=== PATIENT | male | born 1965 | race American Indian/Alaskan Native ===

== ENCOUNTER 2016-05-07 22:52 | Observation (INO) | payer SELFPAY ==
[2016-05-07 22:53] VITALS: BMI 19.6
[2016-05-07 23:05] VITALS: TEMP 97.7
--- NOTE | 2016-05-08 00:22 | C.PDOC ---
History Of Present Illness 51 year old male pt was brought in by EMS for ETOH intoxication today. Pt admits consuming ETOH. Pt denies falls, injuries, and has no physical complaints. Time Seen by Provider: 05/07/16 23:05 Chief Complaint (Nursing): Substance Abuse History Per: Patient, EMS History/Exam Limitations: no limitations Onset/Duration Of Symptoms: Unknown Current Symptoms Are (Timing): Still Present Modifying Factor(s): Alcohol Severity: Moderate Involuntary Hold By: Emergency Physician Past Medical History Reviewed: Historical Data, Nursing Documentation, Vital Signs Vital Signs: Last Vital Signs Temp 97.7 F 05/07/16 23:03 Pulse 86 05/07/16 23:03 Resp 18 05/07/16 23:03 BP 135/95 H 05/07/16 23:03 Pulse Ox 96 05/08/16 00:30 - Medical History PMH: Back Problems (slipped disks), Hypercholesterolemia (GI bleed, alcohol dependence) - [facility] Procedures ALCOHOL DETOXIFICATION (08/30/12) Family History: States: No Known Family Hx - Social History Hx Tobacco Use: No Hx Alcohol Use: Yes Hx Substance Use: No (DENIED) - Immunization History Hx Tetanus Toxoid Vaccination: No Hx Influenza Vaccination: No Hx Pneumococcal Vaccination: No Review Of Systems Except As Marked, All Systems Reviewed And Found Negative. Gastrointestinal: Negative for: Nausea, Vomiting, Abdominal Pain, Diarrhea Musculoskeletal: Negative for: Other (Fall or injury) Physical Exam - Physical Exam Appears: Well, Non-toxic, Other (smells of ETOH) Skin: Warm, Dry Head: Atraumatic, Normacephalic Eye(s): bilateral: Normal Inspection Oral Mucosa: Moist Cardiovascular: Rhythm Regular Respiratory: Normal Breath Sounds, No Rales, No Rhonchi, No Wheezing Gastrointestinal/Abdominal: Normal Exam, Bowel Sounds, Soft, No Tenderness, No Distention, No Guarding, No Rebound Extremity: Normal ROM, No Deformity Neurological/Psych: Other (awake, alert, intoxicated, moving all 4 extremities spontaneously) ED Course And Treatment O2 Sat by Pulse Oximetry: 96 (RA) Pulse Ox Interpretation: Normal Progress Note: Patient placed in ED observation pending sobriety. Accucheck ordered. Disposition - Disposition Disposition Time: 01:00 Condition: STABLE - Clinical Impression Clinical Impression: Alcohol intoxication - Scribe Statement The provider has reviewed the documentation as recorded by the Scribe Valentín Maldonado All medical record entries made by the Lizibyamilet were at my direction and personally dictated by me. I have reviewed the chart and agree that the record accurately reflects my personal performance of the history, physical exam, medical decision making, and the department course for this patient. I have also personally directed, reviewed, and agree with the discharge instructions and disposition. Physician Patient Turnover Patient Signed Over To: Monica Frankel Handoff Comments: pending sobriety
[2016-05-08 06:03] VITALS: BP 130/90; PULSE 70; RESP 14; O2SAT 100
== END 2016-05-08 05:27 | disposition home or self-care (01) ==
LOC: C.ER 22:52 → C.9OBSV 23:25
PROVIDERS: ADMIT Emergency Medicine; ATTEND Emergency Medicine
DX: F10.129 Alcohol abuse with intoxication, unspecified (principal); E78.00 Pure hypercholesterolemia, unspecified
CPT/HCPCS: 99283; G0378

== ENCOUNTER 2016-08-26 20:07 | Observation (INO) | payer SELFPAY ==
[2016-08-26 20:07] VITALS: BMI 19.6
[2016-08-26 20:21] VITALS: RESP 16
--- NOTE | 2016-08-26 20:28 | C.PDOC ---
History Of Present Illness 51 year old male brought to the ER via EMS after he was found intoxicated and [facility] Patient states when he tries to stand up and move he has abdominal pain. Patient reports he has not been able to eat today but he has been able to drink. Denies fever or chills. Time Seen by Provider: 08/26/16 20:23 Chief Complaint (Nursing): Substance Abuse History Per: Patient History/Exam Limitations: no limitations Onset/Duration Of Symptoms: Hrs Current Symptoms Are (Timing): Still Present Suicide/Self Injury Attempted (Context): None Modifying Factor(s): Alcohol Associated Symptoms: denies: Depression, Suicidal Thoughts, Suicidal Plan Involuntary Hold By: None Recent travel outside of the [place]: No Past Medical History Reviewed: Historical Data, Nursing Documentation, Vital Signs Vital Signs: Last Vital Signs Temp 97.9 F 08/26/16 20:20 Pulse 95 H 08/26/16 20:20 Resp 16 08/26/16 20:20 BP 122/84 08/26/16 20:20 Pulse Ox 96 08/26/16 20:33 - Medical History PMH: Back Problems (slipped disks), Hypercholesterolemia (GI bleed, alcohol dependence) Surgical History: No Surg Hx - [facility] Procedures ALCOHOL DETOXIFICATION (08/30/12) Family History: States: Unknown Family Hx - Social History Hx Tobacco Use: No Hx Alcohol Use: Yes Hx Substance Use: No (DENIED) - Immunization History Hx Tetanus Toxoid Vaccination: No Hx Influenza Vaccination: No Hx Pneumococcal Vaccination: No Review Of Systems Constitutional: Negative for: Fever, Chills Gastrointestinal: Positive for: Abdominal Pain Physical Exam - Physical Exam Appears: Non-toxic, No Acute Distress, Other (ETOH on breath) Skin: Normal Color, Warm, Dry Head: Atraumatic, Normacephalic Oral Mucosa: Moist Chest: Symmetrical, No Tenderness Cardiovascular: Rhythm Regular, No Murmur Respiratory: Normal Breath Sounds, No Rales, No Rhonchi, No Wheezing Gastrointestinal/Abdominal: Soft, Tenderness (Diffuse) Neurological/Psych: Oriented x3, Normal Speech, Normal Cognition ED Course And Treatment - Laboratory Results Result Diagrams: 08/26/16 20:48 08/26/16 20:48 Lab Interpretation: Abnormal (ETOH 298, CO2 19) O2 Sat by Pulse Oximetry: 96 (Room air) Pulse Ox Interpretation: Normal Progress Note: Blood work and urinalysis ordered. Pepcid administered. Reevaluation Time: 00:09 Reassessment Condition: Improved (resting quietly.) Disposition - Disposition Disposition Time: 00:15 Condition: STABLE - Clinical Impression Clinical Impression: Alcohol intoxication - Scribe Statement The provider has reviewed the documentation as recorded by the Scribe Kedar Hung All medical record entries made by the Scribe were at my direction and personally dictated by me. I have reviewed the chart and agree that the record accurately reflects my personal performance of the history, physical exam, medical decision making, and the department course for this patient. I have also personally directed, reviewed, and agree with the discharge instructions and disposition. Physician Patient Turnover Patient Signed Over To: Monica Frankel Handoff Comments: pending sobriety
[2016-08-26 20:54] LABS: BASO % 0.6 % (0.0-2.0); EOS # 0.1 K/uL (0.0-0.7); EOS % 2.6 % (0.0-4.0); HEMOGLOBIN 13.4 g/dL (12.0-18.0); LYMPH # 1.6 K/uL (1.0-4.3); LYMPH % 37.4 % (20.0-40.0); MEAN CELL VOLUME 81.7 fL (80.0-94.0); MEAN CORPUSCULAR HEMOGLOBIN 26.3 pg (27.0-31.0); MEAN CORPUSCULAR HGB CONC 32.2 g/dL (33.0-37.0); MEAN PLATELET VOLUME 7.5 fL (7.2-11.7); MONO # 0.4 K/uL (0.0-0.8); MONO % 8.2 % (0.0-10.0); NEUT # 2.2 K/uL (1.8-7.0); NEUT % 51.2 % (50.0-75.0); RBC 5.09 Mil/uL (4.40-5.90); WHITE BLOOD COUNT 4.3 K/uL (4.8-10.8)
[2016-08-26 21:00] LABS: ALBUMIN 4.4 g/dL (3.5-5.0)
[2016-08-26 21:03] LABS: GFR AFRICAN-AMERICAN > 60; GFR NON-AFRICAN AMERICAN > 60
[2016-08-26 21:04] LABS: ALT/SGPT 22 U/L (21-72); BLOOD UREA NITROGEN 11 mg/dL (9-20); CALCIUM 9.1 mg/dl (8.6-10.4); LIPASE 50 U/L (23-300)
[2016-08-26 21:10] LABS: AST/SGOT 41 U/L (17-59)
[2016-08-26 21:11] LABS: ALB/GLOB RATIO 1.1 (1.0-2.1)
[2016-08-26 22:25] LABS: URINE BILIRUBIN NEGATIVE (NEGATIVE); URINE BLOOD NEGATIVE (NEGATIVE); URINE CLARITY Clear (Clear); URINE COLOR Colorless (YELLOW); URINE GLUCOSE (UA) NORMAL (Normal); URINE LEUKOCYTE ESTERASE NEG Leu/uL (Negative); URINE NITRATE NEGATIVE (NEGATIVE); URINE PROTEIN NEGATIVE (NEGATIVE); URINE UROBILINOGEN NORMAL mg/dL (0.2-1.0)
[2016-08-26 22:33] LABS: BARBITURATES, UR NEGATIVE (NEGATIVE)
[2016-08-26 22:34] LABS: BENZODIAZEPINES, UR NEGATIVE (NEGATIVE)
[2016-08-26 22:36] LABS: OPIATES, UR NEGATIVE (NEGATIVE)
[2016-08-26 22:37] LABS: PHENCYCLIDINE, UR NEGATIVE (NEGATIVE)
[2016-08-27 05:25] VITALS: BP 114/76; PULSE 86; TEMP 97.9; O2SAT 97
== END 2016-08-27 05:16 | disposition home or self-care (01) ==
LOC: C.ER 20:07 → C.9OBSV 20:42
PROVIDERS: ADMIT Emergency Medicine; ATTEND Emergency Medicine
DX: F10.120 Alcohol abuse with intoxication, uncomplicated (principal); Y90.8 Blood alcohol level of 240 mg/100 ml or more; Z68.20 Body mass index [BMI] 20.0-20.9, adult
CPT/HCPCS: 80053; 81001; 82948; 83690; 85025; G0378; G0480

== ENCOUNTER 2017-06-25 13:32 | Emergency (ER) | payer MEDICAID ==
[2017-06-25 13:37] VITALS: BMI 21.7
[2017-06-25 13:41] VITALS: BP 150/99; PULSE 104; RESP 18; TEMP 98.5; O2SAT 96
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
== END 2017-06-25 16:00 | disposition home or self-care (01) ==
LOC: C.ER 13:32
DX: F10.10 Alcohol abuse, uncomplicated (principal); Z59.0 Homelessness; E78.00 Pure hypercholesterolemia, unspecified

== ENCOUNTER 2018-01-25 23:40 | Emergency (ER) | payer MEDICAID ==
[2018-01-25 23:40] VITALS: BMI 21.7
[2018-01-25 23:48] VITALS: RESP 20; O2SAT 96
--- NOTE | 2018-01-26 00:10 | C.PDOC ---
History Of Present Illness 52 year old male with a Hx of homelessness and ETOH abuse presents to the ER reporting a cough productive of yellow phlegm for the past 2 days associated with mild runny nose and sore throat. Denies fever or chills. Patient reports body aches and a lot of stomach pain especially when coughing. Denies vomiting or diarrhea. Patient has not taken anything for the symptoms and does not have a regular doctor. Denies Hx chronic illness, tobacco use, or family Hx. Time Seen by Provider: 01/25/18 23:48 Chief Complaint (Nursing): Flu-like Symptoms History Per: Patient History/Exam Limitations: no limitations Onset/Duration Of Symptoms: Days (2) Current Symptoms Are (Timing): Still Present Location Of Pain: Diffuse Myalgias, Other (Stomach, worse when coughing) Sick Contacts (Context): None Associated Symptoms: Sore Throat, Cough, Sputum, Sinus Drainage, Myalgias, Other (Stomach pain). denies: Fever, Chills, Nausea, Vomiting Recent travel outside of the [place]: No Past Medical History Reviewed: Historical Data, Nursing Documentation, Vital Signs Vital Signs: Last Vital Signs Temp 97.6 F 01/25/18 23:44 Pulse 95 H 01/25/18 23:44 Resp 20 01/25/18 23:44 BP 175/117 H 01/25/18 23:44 Pulse Ox 96 01/25/18 23:44 - Medical History PMH: Back Problems (slipped disks), Hypercholesterolemia (GI bleed, alcohol dependence) - [facility] Procedures ALCOHOL DETOXIFICATION (08/30/12) Family History: States: Unknown Family Hx - Social History Hx Tobacco Use: No Hx Alcohol Use: Yes Hx Substance Use: No - Immunization History Hx Tetanus Toxoid Vaccination: No Hx Influenza Vaccination: No Hx Pneumococcal Vaccination: No Review Of Systems Except As Marked, All Systems Reviewed And Found Negative. ENT: Positive for: Nose Discharge (Mild), Throat Pain Respiratory: Positive for: Cough, Sputum (Yellow phlegm) Gastrointestinal: Positive for: Abdominal Pain (Worse when coughing) Musculoskeletal: Positive for: Other (Body aches) Physical Exam - Physical Exam Appears: No Acute Distress, Unkempt, Other (Disheveled, Malodorous) Skin: Warm, Dry Head: Normacephalic, Tenderness Eye(s): bilateral: PERRL, EOMI Nose: Normal Oral Mucosa: Moist Throat: No Erythema, No Exudate Neck: Normal ROM, Trachea Midline Lymphatic: No Adenopathy Chest: Symmetrical Cardiovascular: Rhythm Regular, No Murmur Respiratory: Normal Breath Sounds, No Accessory Muscle Use, No Rhonchi, No Wheezing Gastrointestinal/Abdominal: Tenderness (Mildly diffuse), No Mass, No Guarding, No Rebound Back: Normal Inspection, No Decreased ROM Extremity: Normal ROM, No Deformity Neurological/Psych: Oriented x3 Other Neurological Findings: No Facial Palsy ED Course And Treatment O2 Sat by Pulse Oximetry: 96 (Room air) Pulse Ox Interpretation: Normal Medical Decision Making Medical Decision Making: Impression: Cough Differential includes but not limited to: Viral syndrome, flu, bronchitis, and pneumonia. Disposition - Disposition Referrals: Marek Olivares MD [Primary Care Provider] - Disposition: HOME/ ROUTINE Disposition Time: 00:29 Condition: STABLE Prescriptions: Benzonatate [Tessalon Perle] 200 mg PO TID PRN #30 capsule PRN Reason: Cough Ibuprofen [Motrin Tab] 600 mg PO Q8 PRN #30 tab PRN Reason: Pain, Moderate (4-7) Oseltamivir Cap [Tamiflu] 75 mg PO BID #10 cap Instructions: Acute Bronchitis, Adult (DC) - Clinical Impression Clinical Impression: Influenza-like illness - Scribe Statement The provider has reviewed the documentation as recorded by the Scribyamilet Hung All medical record entries made by the Scribe were at my direction and personally dictated by me. I have reviewed the chart and agree that the record accurately reflects my personal performance of the history, physical exam, medical decision making, and the department course for this patient. I have also personally directed, reviewed, and agree with the discharge instructions and disposition.
[2018-01-26 01:40] VITALS: PULSE 82; TEMP 98.4
[2018-01-26 01:41] VITALS: BP 136/82
--- NOTE | 2018-01-26 09:40 | RAD ---
Chest x-ray two views HISTORY: Shortness of breath. COMPARISON: 04/04/2015 FINDINGS: Mild venous congestion Enlarged ectatic aorta. Mild cardiomegaly. Degenerative changes in the spine and shoulders. IMPRESSION: Mild venous congestion Enlarged ectatic aorta. Mild cardiomegaly.
== END 2018-01-26 01:41 | disposition home or self-care (01) ==
LOC: C.ER 23:40 → SUPCPDRO 23:40 → C.ER 01-26 01:41
DX: J11.1 Influenza due to unidentified influenza virus with other respiratory manifestations (principal); E78.00 Pure hypercholesterolemia, unspecified

== ENCOUNTER 2018-05-11 20:00 | Emergency (ER) | payer MEDICAID ==
[2018-05-11 20:00] VITALS: BMI 21.7
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
[2018-05-11 22:49] VITALS: RESP 16
[2018-05-12 05:00] VITALS: BP 113/76; PULSE 94; TEMP 99
[2018-05-21 18:35] VITALS: O2SAT 98
== END 2018-05-12 06:00 | disposition home or self-care (01) ==
LOC: C.ER 20:00
DX: F10.20 Alcohol dependence, uncomplicated (principal); E78.00 Pure hypercholesterolemia, unspecified